=== PATIENT | female | born 1940 | race Caucasian/White ===

== ENCOUNTER → 2016-11-23 | Outpatient (CLI) | payer OTHER ==
[~2016-11-23] MED LIST: ASPIR-TRIN325 M1 PO; B-121000 MC2 PO; CALCIUM 500 MG1 EACH PO; DILANTIN PO; DILANTIN100 MG PO; FLEXERIL10 MG PO; GLUCOSAMINE; LAMICTAL25 MG PO; MAGNESIUM100 MG PO; MECLIZINE HCL25 MG PO; NAPROSYN500 MG PO; PREDNISONE10 MG PO; SYNTHROID175 MCG PO; VITAMIN D400 UNI1 PO; [UNRECOGNIZED DRUG - OTHER]
== END | disposition home or self-care (01) ==
LOC: EEG 08:31
DX: R56.9 Unspecified convulsions (principal)
CPT/HCPCS: 95819